=== PATIENT | male | born 1950 | race Asian ===

== ENCOUNTER 2016-10-23 05:16 | Inpatient (IN) | payer OTHER ==
[2016-10-23] VITALS (18 sets, daily range): BP systolic 91–144; BP diastolic 61–73; PULSE 50–72; RESP 10–20; Ht 172.7 cm; Wt 96.7 kg
[~2016-10-23] VITALS: Ht 172.7 cm; Wt 96.7 kg
[2016-10-23] MEDS ORDERED: CEFAZOLIN 2 GM/50 ML (PMX) 50 ML IVPB ONE (06:12)
[2016-10-23] MEDS ORDERED: ALBU8.5H3 INH (06:27)
[2016-10-23] MEDS ORDERED: PANT20TA3 PO (06:27)
[2016-10-23] MEDS ORDERED: NEBI5TAB9 PO (06:27)
[2016-10-23] MEDS ORDERED: LOSA100T7 PO (06:27)
[2016-10-23] MEDS ORDERED: HYDROCORTISONE 250 MG INJ IV ONE (06:30)
--- NOTE | 2016-10-23 06:36 | HPN ---
Date/Time of Note Date/Time of Note DATE: 10/23/16 TIME: 06:36 Interval H&P Admission Note Pt. seen H&P reviewed: No system changes SUDHEER DAVIS MD Oct 23, 2016 06:36
[2016-10-23] MEDS ORDERED: THROMBIN 5000 UNIT VIAL ONE (06:43)
[2016-10-23] MEDS ORDERED: GELATIN SIZE 100 SPONGE ONE (06:43)
[2016-10-23] MEDS ORDERED: BUPIVACAINE 0.25% (MPF) 10 ML 10 ML VIAL ONE (06:43)
[2016-10-23] MEDS ORDERED: POLYMYXIN/BACITRACIN 1L IRRIG ONE (06:43)
[2016-10-23] MEDS ORDERED: ROCURONIUM 50 MG INJ ONE ×3 (06:56→07:54)
[2016-10-23] MEDS ORDERED: MIDAZOLAM 1 MG/ML 2 ML INJ ONE (06:56)
[2016-10-23] MEDS ORDERED: PROPOFOL 100 ML ONE (06:56)
[2016-10-23] MEDS ORDERED: SUCCINYLCHOLINE CHLORIDE 100 MG/5 ML SYG IV ONE (06:56)
[2016-10-23] MEDS ORDERED: FENTAnyl 50 MCG/ML VIAL ONE (06:56)
[2016-10-23] MEDS ORDERED: ACETAMINOPHEN 1000 MG/100 ML IVPB ONE (07:00)
[2016-10-23] MEDS ORDERED: LABETALOL HCL 20MG INJ ONE (07:28)
[2016-10-23] MEDS ORDERED: hydrALAzine 20 MG INJ ONE (07:28)
[2016-10-23] MEDS ORDERED: PHENYLephrine (100 MCG/ML) 5ML SYG ONE ×2 (07:37→10:27)
[2016-10-23] MEDS ORDERED: DEXAMETHASONE 4 MG/ML 1 ML INJ ONE (07:52)
[2016-10-23] MEDS ORDERED: METOCLOPRAMIDE 10 MG INJ ONE (07:52)
[2016-10-23] MEDS ORDERED: ONDANSETRON 4 MG INJ ONE (07:52)
[2016-10-23] MEDS ORDERED: CEFAZOLIN 1 GM INJ ONE (10:15)
[2016-10-23] MEDS ORDERED: NEOSTIGMINE 3 MG/3 ML SYRINGE ONE (10:54)
[2016-10-23] MEDS ORDERED: GLYCOPYRROLATE 0.4 MG INJ ONE (10:54)
[2016-10-23] MEDS ORDERED: METOCLOPRAMIDE 10 MG INJ IV PRN (11:00)
[2016-10-23] MEDS ORDERED: ONDANSETRON 4 MG INJ IV PRN ×2 (11:00→12:00)
[2016-10-23] MEDS ORDERED: MEPERIDINE 25 MG INJ IV PRN (11:00)
[2016-10-23] MEDS ORDERED: DIPHENHYDRAMINE 50 MG INJ IV PRN (11:00)
[2016-10-23] MEDS ORDERED: HYDROmorphONE (0.2 MG/ML) 10ML SYG IV PRN ×3 (11:00)
[2016-10-23] MEDS ORDERED: EPHEDrine SULFATE 50 MG/5 ML SYG IV PRN (11:00)
[2016-10-23] MEDS ORDERED: LABETALOL HCL 20MG INJ IV PRN (11:00)
[2016-10-23] MEDS ORDERED: ALBUMIN HUMAN 5% 250 ML IV PRN (11:00)
[2016-10-23] MEDS ORDERED: morphine (1 MG/ML) 10ML SYRINGE IV PRN ×2 (11:00)
[2016-10-23] MEDS ORDERED: hydrALAzine 20 MG INJ IV PRN (11:00)
--- NOTE | 2016-10-23 11:40 | OPR ---
Date/Time of Note Date/Time of Note DATE: 10/23/16 TIME: 11:37 Operative Report Preoperative Diagnosis HNP C4-5 and C5-6 Postoperative Diagnosis Same Operation Performed Anterior cervical microdiscectomy C4-5 Anterior cervical microdiscectomy C5-6 Anterior cervical interbody arthrodesis at C4-5 Anterior cervical interbody arthrodesis at C5-6 Left iliac bone graft Segmental spinal fixation from C4-C6 using Alphatec plate and screws Cosmetic wound closures 5 cm left cervical 3 cm left iliac AP and lateral localizing cervical radiograph (2 sets) Intraoperative nerve monitoring (3 hours) Surgeon: SUDHEER DAVIS MD pastoral assistant: BETZAIDA HANSEN MD Anesthesia: general Anesthesiologist: MELISSA CASE MD Estimated Blood Loss: 10 - 50 ml's Specimens Disk C4-5 and C5-6 Tubes/Drains Two medium hemovac drains in neck and left iliac Complications: None Pt Condition Post Procedure: stable Disposition: PACU Operative\Procedure Findings At surgery, a severe central and left paracentral herniation of the C4-5 disc was confirmed with marked cord compression. At C5-6, severe disc degeneration with a small herniation was confirmed. SUDHEER DAVIS MD Oct 23, 2016 11:40
[2016-10-23] MEDS ORDERED: HYDROCODONE/APAP (5/325) TAB PO PRN (11:44)
[2016-10-23] MEDS: morphine (1 MG/ML) 10ML SYRINGE IV PRN ×3 (11:54→12:33)
[2016-10-23] MEDS ORDERED: DIPHENHYDRAMINE 50 MG CAP PO PRN (12:00)
[2016-10-23] MEDS ORDERED: NACL 0.9% 3 ML SYG IV SCH (12:00)
[2016-10-23] MEDS ORDERED: DIAZEPAM 5 MG/ML SYG IM PRN (12:00)
[2016-10-23] MEDS ORDERED: DIAZEPAM 5 MG TAB PO PRN (12:00)
[2016-10-23] MEDS ORDERED: PROCHLORPERAZINE 10 MG TAB PO PRN (12:00)
[2016-10-23] MEDS ORDERED: TRIMETHOBENZAMIDE 100 MG/ML VIAL IM PRN (12:00)
[2016-10-23] MEDS ORDERED: ACETAMINOPHEN 325 MG TAB PO PRN (12:00)
[2016-10-23] MEDS ORDERED: BETHANECHOL 25 MG TAB PO PRN (12:00)
[2016-10-23] MEDS ORDERED: AL HYDROX/MG HYDROX/SIMETH 30 ML CUP PO PRN (12:00)
[2016-10-23] MEDS ORDERED: NALOXONE (0.4 MG/ML) INJ IV PRN (12:00)
[2016-10-23] MEDS ORDERED: ZOLPIDEM 5 MG TAB PO PRN (12:00)
[2016-10-23] MEDS: HYDROmorphONE 0.2 MG/ML PCA IV SCH (12:13)
[2016-10-23] MEDS: CEFAZOLIN 1 GM/50 ML (PMX) 50 ML IVPB SCH ×3 (15:06→23:51)
[2016-10-23] MEDS: DEXTROSE 5%-0.45% NACL 1,000 ML IV SCH ×2 (15:06→21:34)
[2016-10-23] MEDS: HYDROCORTISONE 100 MG INJ IV SCH (15:17)
[2016-10-23] MEDS: CEPASTAT LOZENGE MT PRN ×2 (15:17→20:43)
--- NOTE | 2016-10-23 16:14 | RADRPT ---
PROCEDURE: Intraoperative XR. CLINICAL INDICATION: Intraoperative radiograph during cervical spine surgery. TECHNIQUE: 6 spot intraoperative lateral cervical x-rays image was provided. The images were revi ewed on a high-resolution PACS workstation. COMPARISON: None available FINDINGS: Spot intraoperative lateral cervical view were provided during cervical spine surgery. The images d emonstrate additional metallic probe at the level of C3-4 and C4-5. Subsequent images demonstrate p lacement of anterior vertebral body screws in the C4, C5 and C6 vertebral bodies with associated ant erior spinal fusion plate. IMPRESSION: 1. Spot intraoperative lateral cervical view during cervical spine fusion were provided. 2. Please see operative report of the same day for further information. RPTAT: HGAS .Good Fitzpatrick MD, MD Date Time Electronically viewed and signed by .Good Fiztpatrick MD, on 10/23/2016 16:14 .S/
[2016-10-23] MEDS ORDERED: LEVALBUTEROL (NEB) 0.31 MG/3 ML AMP HHN PRN (18:30)
[2016-10-23] MEDS ORDERED: IPRATROPIUM (NEB) 0.5 MG/2.5 ML AMP HHN PRN (18:30)
--- NOTE | 2016-10-23 18:54 | CONS ---
Date/Time of Note Date/Time of Note DATE: 10/23/16 TIME: 18:31 Assessment/Plan Assessment/Plan Problems: (1) Herniated cervical disc Status: Chronic Comment: with compression s/p anterior cervical discectomy and fusion. Clinically stable. (2) Chronic bronchitis with COPD (chronic obstructive pulmonary disease) Status: Chronic Comment: Breathing treatments( on demand) as needed (3) GERD (gastroesophageal reflux disease) Status: Chronic Comment: Continue Protonix daily (4) Hypertension Status: Chronic Comment: Will continue Losartan and Bystolic (5) Aftercare following surgery Status: Acute Comment: Pain management and physical therapy per Dr. Mccormick and team. (6) Impaired glucose tolerance Status: Chronic Comment: Will add accu-check treatment as needed Additional Assessment/Plan POD#0 clinically stable. Consultation Date/Type/Reason Admit Date/Time Oct 23, 2016 at 05:16 Date of Consultation: Oct 23, 2016 Type of Consultation: Internal Medicine Reason for Consultation Medical management of non surgical issues Referring Provider: SUDHEER MCCORMICK Hx of Present Illness 65 year old man history of fall from a seay with resultant herniated disc with cord compression of C4-5 and C5-6. He experienced symptoms of neck pain, stiffness and bilateral upper extremity hyperesthesias. He has undergone conservative management and failed remaining symptomatic. He is currently s/p anterior cervical discectomy with fusion. Constitutional: no complaints Eyes: other (floaters) ENT: no complaints Respiratory: other (chest congestion with occassional phlegm) Cardiovascular: no complaints Gastrointestinal: other (reflux) Genitourinary: no complaints Musculoskeletal: other (right foot pain) Skin: no complaints Neurologic: other (bilateral hyperstesias improved after surgery) Endocrine: no complaints Lymphatic: no complaints Psychological: no complaints Immunologic: no complaints Past Medical History Medical History: GERD, hypertension, other (impaired glucose tolerance.) Past Surgical History Past Surgical Hx: other (Bilateral carpal tunnel release, skin grafts, bilateral knee arthroscopy) Family History Significant Family History: heart disease, hypertension, other (thyroid cancer) Social History Alcohol Use: none Smoking Status: Never smoker Drug Use: none Other 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 Exam/Review of Systems Vital Signs Vitals Vital Signs Date Time Temp Pulse Resp B/P Pulse Ox O2 Delivery O2 Flow Rate FiO2 10/23/16 18:02 20 10/23/16 13:03 66 122/72 96 Room Air 10/23/16 12:18 98.2 10/23/16 11:26 8.0 Exam Sitting comfortably in bed. Constitutional: alert, oriented, well developed Psych: no complaints Head: normocephalic Eyes: EOMI, PERRL Neck: other (neck in collar) Respiratory: clear to auscultation, normal air movement Cardiovascular: regular rate and rhythm Musculoskeletal: nl extremities to inspection Extremities: normal pulses Neurological: other (grossly intact) Skin: nl turgor Medications Medications Current Medications Dextrose/Sodium Chloride (D5-1/2ns) 1,000 ml @ 100 mls/hr Q10H IV Last administered on 10/23/16 15:06; Admin Dose 100 MLS/HR; Start 10/23/16 at 11:34 Acetaminophen/ Hydrocodone Bitart (Steen (5/325)) 1 tab Q4H PRN PO PAIN LEVEL 1 -5; Start 10/23/16 at 11:44 Acetaminophen/ Hydrocodone Bitart 2 tab 2 tab Q4H PRN PO PAIN LEVEL 6-10; Start 10/23/16 at 11:44 Cefazolin Sodium (Ancef 1 Gm/50 ml (Pmx)) 50 ml @ 100 mls/hr Q6 IVPB Last administered on 10/23/16 15:06; Admin Dose 100 MLS/HR; Start 10/23/16 at 12:00; Stop 10/24/16 at 06:29 Zolpidem Tartrate (Ambien) 5 mg HS PRN PO INSOMNIA; Start 10/23/16 at 12:00 Prochlorperazine (Compazine) 10 mg Q4H PRN PO NAUSEA AND/OR VOMITING; Start 10/23/16 at 12:00 Trimethobenzamide HCl (Tigan) 200 mg Q4H PRN IM NAUSEA AND/OR VOMITING; Start 10/23/16 at 12:00 Ondansetron HCl (Zofran Inj) 4 mg Q6H PRN IV NAUSEA AND/OR VOMITING; Start 10/23 at 12:00 Al Hydrox/Mg Hydrox/Simethicone (Mag-Al Plus) 15 ml Q4H PRN PO CONSTIPATION; Start 10/23/16 at 12:00 Docusate Sodium (Colace) 100 mg BID PO ; Start 10/24/16 at 09:00 Acetaminophen (Tylenol Tab) 650 mg Q4H PRN PO TEMP GREATER THAN 101F OR MARIA; Start 10/23/16 at 12:00 Ascorbic Acid (Vitamin C) 1,000 mg BID PO ; Start 10/24/16 at 09:00 Ferrous Sulfate (Ferrous Sulfate (Ec)) 325 mg TID PO ; Start 10/24/16 at 09:00 Ranitidine HCl (Zantac) 150 mg BID PO ; Start 10/23/16 at 21:00 Diazepam (Valium) 5 mg Q4H PRN PO MUSCLE SPASMS; Start 10/23/16 at 12:00 Diazepam (Valium) 5 mg Q4H PRN IM MUSCLE SPASMS; Start 10/23/16 at 12:00 Phenol (Cepastat Lozenge) 1 lozenge PRN PRN MT SORE THROAT Last administered on 10/23/16 15:17; Admin Dose 1 LOZENGE; Start 10/23/16 at 12:00 Bethanechol Chloride (Urecholine) 25 mg PRN PRN PO UNABLE TO VOID; Start at 12:00 Diphenhydramine HCl (Benadryl) 50 mg Q6H PRN PO PRURITUS; Start 10/23/16 at 12: 00 Hydromorphone HCl (Dilaudid QUALITY INTERN) Q4PCA IV Last administered on 10/23/16 12:13 ; Admin Dose 6 MG; Start 10/23/16 at 11:41 Naloxone HCl (Narcan) 0.2 mg Q2M PRN IV RR 8 BREATHS/MIN OR LESS; Start at 12:00 Hydrocortisone (Solu-Cortef) 100 mg AM IV Last administered on 10/23/16 15:17; Admin Dose 100 MG; Start 10/23/16 at 13:00; Stop 10/24/16 at 09:01 Losartan Potassium (Cozaar) 100 mg DAILY PO ; Start 10/24/16 at 09:00 Miscellaneous Medication (Bystolic) 5 mg DAILY PO ; Start 10/23/16 at 20:00 Pantoprazole Sodium (Protonix) 20 mg DAILY@06 PO ; Start 10/24/16 at 06:00 BEBETO BONILLA MD Oct 23, 2016 18:43
[2016-10-23] MEDS: ALBUTEROL 18 GM INHALER INH SCH (20:36)
[2016-10-23] MEDS: NEBIVOLOL 5 MG TAB PO SCH (20:37)
[2016-10-23] MEDS: RANITIDINE 150 MG TAB PO SCH (20:37)
[2016-10-23] MEDS: ACCU-CHEK XX SCH (20:38)
[2016-10-24] MEDS: ALBUTEROL 18 GM INHALER INH SCH ×4 (00:39→13:00)
[2016-10-24 01:06] VITALS: BP 120/65; RESP 18
[2016-10-24] MEDS: DEXTROSE 5%-0.45% NACL 1,000 ML IV SCH (03:18)
[2016-10-24] MEDS: CEPASTAT LOZENGE MT PRN ×2 (03:23→05:44)
[2016-10-24] MEDS: HYDROmorphONE 0.2 MG/ML PCA IV SCH (05:43)
[2016-10-24] MEDS: CEFAZOLIN 1 GM/50 ML (PMX) 50 ML IVPB SCH (05:46)
[2016-10-24 05:56] LABS: HEMATOCRIT 41.3 % (42.0-52.0); HEMOGLOBIN 14.6 g/dl (14.0-18.0)
[2016-10-24] MEDS ORDERED: PANTOPRAZOLE SODIUM 20 MG TABEC PO SCH (06:00)
[2016-10-24 06:15] LABS: CALCIUM 8.9 mg/dl (8.4-10.2); CREATININE 0.78 mg/dl (0.61-1.24); POTASSIUM 4.1 mmol/L (3.5-5.1)
--- NOTE | 2016-10-24 07:04 | PN ---
Date/Time of Note Date/Time of Note DATE: 10/24/16 TIME: 07:03 Assessment/Plan Lines/Catheters IV Catheter Type (from Nrs): Saline Lock Ann in Place (from Nrs): Yes Subjective 24 Hr Interval Summary The patient is postop day #1 following a 2 level anterior cervical discectomy and fusion. He is resting comfortably. His Brielle collar is in place. Neurovascular structures are intact. His morning lab work is unremarkable. A Ann catheter is in place. His Hemovac drainage is minimal, and will be removed. His Ann catheter will be removed. He will be given physical therapy 3-4 times daily until he is independent. Exam/Review of Systems Vital Signs Vitals Vital Signs Date Time Temp Pulse Resp B/P Pulse Ox O2 Delivery O2 Flow Rate FiO2 10/24/16 05:00 18 10/24/16 01:06 98.6 62 120/65 96 10/23/16 23:24 3.0 10/23/16 20:14 Nasal Cannula Intake and Output 10/23/16 10/23/16 10/24/16 15:00 23:00 07:00 Intake Total 2600 ml 700 ml 900 ml Output Total 370 ml 900 ml 1600 ml Balance 2230 ml -200 ml -700 ml Results Result Diagram: 10/24/16 0507 10/24/16 0507 SUDHEER DAVIS MD Oct 24, 2016 07:04
--- NOTE | 2016-10-24 07:32 | OPR ---
DATE OF OPERATION: 10/23/2016 PREOPERATIVE DIAGNOSES: 1. Herniated disk C4-C5 centrally with severe cord compression. 2. Herniated disk C5-C6. POSTOPERATIVE DIAGNOSES: 1. Herniated disk C4-C5 centrally with severe cord compression. 2. Herniated disk C5-C6. OPERATION PERFORMED: 1. Anterior cervical microdiskectomy at C4-C5. 2. Anterior cervical microdiskectomy at C5-C6. 3. Anterior cervical interbody arthrodesis C4-C5. 4. Anterior cervical interbody arthrodesis at C5-C6. 5. Segmental spinal fixation from C4 to C6 using Alphatec plate and screws. 6. Left iliac bone graft. 7. AP and lateral cervical radiographs (2 sets). 8. Intraoperative nerve monitoring (3 hours). SURGEON: Attila Mccormick MD RESIDENTIAL FINISH CARPENTER: LUCAS Tran ANESTHESIA: General endotracheal, by Dr. Law. ESTIMATED BLOOD LOSS: 40 mL, none replaced. DRAINS: Two medium Hemovac drains employed in the cervical wound, 2 medium Hemovac drains employed in the iliac wound. COMPLICATIONS: None. PERTINENT HISTORY AND PHYSICAL: This is a 65-year-old male with persistent neck and upper extremity complaints which have been unrelieved by conservative management following industrial injury of 06/28/1979. He has had extensive care since that time, has remained symptomatic. He has undergone a number of diagnostic studies including an MRI of the cervical spine which demonstrated a large central herniation of C4-C5 disk with cord compression and a smaller central herniation of C5-C6. Treatment options were discussed with the patient , who elected to proceed with surgery. OPERATIVE FINDINGS AT SURGERY: A large central herniation at C4-C5 and a smaller central herniation at C5-C6 were confirmed. The baseline intraoperative nerve monitoring revealed a decrease in the C5 potentials bilaterally at 50% and the C6 potentials bilaterally of 40%. These both returned to normal at the completion of surgery. OPERATIVE PROCEDURE: With the patient in supine position after satisfactory induction of general endotracheal anesthesia by . patient was positioned in supine position onto the operative table. All pressure points were carefully padded. The athrombic pumps were applied to the legs below the knees to prevent venous stasis during and after procedure. An indwelling Ann catheter was also placed preoperatively to facilitate bladder drainage during and after the procedure. The anterior cervical spine and left iliac crest were prepped and draped in usual sterile fashion. A 5 cm transverse incision was carried out on the anterior aspect of cervical spine approximately 2 fingerbreadths above the clavicle in line with the clavicle through skin and subcutaneous tissue to the platysma fascia. Superficial retractors were placed and hemostasis secured with electrocautery. Throughout the procedure, copious amounts of antibacterial irrigating solution were used to periodically irrigate the wound. The platysma fascia was divided transversely, and the interval between the sternocleidomastoid and strap muscles was entered with blunt dissection. The Cloward hand-held retractor was used to retract the esophagus and the trachea to the right. The peanut elevator was used to clear the anterior longitudinal ligament of overlying soft tissue. A 20-gauge spinal needle was carefully angulated to prevent overpenetration was then placed into what was felt to be the C4-C5 and C5-C6 disks. A lateral roentgenogram was taken which confirmed anatomic localization. The longissimus coli muscles were elevated bilaterally with a hot knife, Cloward self-retaining retractor was then placed into the wound for visualization and retraction. The operating microscope was then moved into place. The 15 blade knife was used to cut a rectangular window in the annulus and anterior longitudinal ligament at C4-C5 and C5-C6. Multiple degenerative disk fragments were harvested with pituitary rongeurs, back to the level of posterior longitudinal ligament. The Cloward interbody distractors were used to facilitate disk space distraction. The 0, 2-0, 3-0, and 4-0 straight and angulated Chandni curettes were then used to remove the cartilaginous endplates. A high speed Wilver cecil bur was also used to remove remnants of cartilage at C4-C5 and C5-C6 disk spaces. The 2 mm Kerrison punch was then used to take down the posterior longitudinal ligament at both levels to decompress the spinal cord and the exiting nerve roots at each level. Some large disk fragments were removed at the C4-C5 level from behind the disk space. Attention was then turned to the left iliac crest where a 3 cm incision was carried out 1 inch proximal and 1 inch lateral to the anterior superior iliac spine through skin and subcutaneous tissue to the fascia. The skin was then retracted to the level of the iliac crest and the hot knife used to make a fascial incision directly over the iliac crest. A subperiosteal dissection carried out was then on the inner and outer table of the left ilium and a tricortical iliac bone graft measuring approximately 3/4 inch in length and 1 cm deep was then harvested using a reciprocating saw and a 3/4 inch curved osteotome and mallet. The donor bone edges were waxed for hemostasis after thorough irrigation with antibacterial irrigating solution. The wound was closed over 2 medium Hemovac drains, one below the fascia and one above the fascia using #1 Vicryl sutures on the fascia, 2-0 Vicryl sutures in subQ tissue , and a 4-0 Vicryl subcuticular cosmetic closing suture on the skin. The bone plug was then divided into 2 and trimmed to approximately 6 mm in height and 8 mm in depth. It was impacted in place at C4-C5 and C5-C6 under direct vision with the microscope. The 40 mm Alphatec plate was then selected and temporarily transfixed to the anterior aspect of cervical spine with darts. AP and lateral x-rays were taken, which confirmed appropriate positioning of the bone plugs and the hardware. The 14 mm self-tapping and self-drilling screws were then used to secure the plate to the anterior aspects of C4, C5 and C6 under direct vision. Final AP and lateral cervical radiographs were taken, which confirmed appropriate positioning of the hardware and the bone plugs. The wound was again finally irrigated with antibacterial irrigating solution and closed over 2 medium Hemovac drains, one below the fascia and one above the fascia; using 0 Vicryl Stratafix sutures on the interval between the sternocleidomastoid and strap muscles, 0 Vicryl sutures on the platysma fascia, 3-0 Vicryl sutures on subcutaneous tissue, and a 4-0 Vicryl subcuticular cosmetic closing suture on the skin. Dermabond and sterile dressings were applied. The patient's neck was then immobilized in an [place] collar and he was extubated by Dr. Law. and transported to the recovery room in satisfactory condition. At the conclusion of the procedure, sponge, instrument, and needle counts were all correct. NEED FOR ENTRY LEVEL PROJECT COORDINATOR: During this spinal surgical procedure, my corporate law assistant was used to retract and protect the spinal nerves and dural sac. My corporate law assistant also employed the suction catheters to evacuate blood from the surgical field to improve visualization of the neural structures. The corporate law assistant was medically necessary to facilitate the completion of the surgery in a safe and expeditious manner. State of [place] regulations, as well as hospital bylaws, preclude the use of non-licensed health care personnel such as operating room technicians, to perform these functions. Throughout the procedure, neuromonitoring was carried out by [email or web address] including EMG, SSEP and MEP monitoring of the C4, C5 , C6, C7 nerve roots and spinal cord potentials along with laryngeal nerve potentials. These were interpreted by the neurologist employed by [employer]. Dictated By: ATTILA MCCORMICK MD TM/NTS Conf#: [id number] DID#: [id number] CC: LOUISA MARCELINO MD;*EndCC* MTDD
[2016-10-24 07:52] VITALS: BP 120/64; RESP 20
[2016-10-24] MEDS ORDERED: BETHANECHOL 25 MG TAB PO PRN (08:00)
[2016-10-24] MEDS ORDERED: ASCORBIC ACID 500 MG TAB PO SCH (09:00)
[2016-10-24] MEDS ORDERED: LOSARTAN 50 MG TAB PO SCH (09:00)
[2016-10-24] MEDS ORDERED: DOCUSATE SODIUM 100 MG CAP PO SCH (09:00)
[2016-10-24] MEDS: HYDROCORTISONE 100 MG INJ IV SCH (09:13)
[2016-10-24] MEDS: NEBIVOLOL 5 MG TAB PO SCH (09:14)
[2016-10-24] MEDS: FERROUS SULFATE (EC) 325 MG TAB PO SCH ×2 (09:14→13:00)
[2016-10-24] MEDS: RANITIDINE 150 MG TAB PO SCH (09:14)
[2016-10-24] MEDS: ACCU-CHEK XX SCH ×2 (09:15→11:10)
[2016-10-24 09:23] LABS: ADD UMIC YES; URINE BILIRUBIN (Dip) NEGATIVE (NEGATIVE); URINE BLOOD (Dip) 3+ (NEGATIVE); URINE COLOR LT. YELLOW (YELLOW); URINE GLUCOSE (Dip) NEGATIVE (NEGATIVE); URINE KETONES (Dip) NEGATIVE (NEGATIVE); URINE LEUKOCYTE ESTERASE (Dip) NEGATIVE (NEGATIVE); URINE NITRITE (Dip) NEGATIVE (NEGATIVE); URINE TOTAL PROTEIN (Dip) NEGATIVE (NEGATIVE); URINE UROBILINOGEN (Dip) 0.2 E.U./dL (0.1-1.0)
[2016-10-24 10:01] LABS: BACTERIA,URINE RARE; URINE RBCS >200 /HPF (0)
[2016-10-24] MEDS: HYDROCODONE/APAP (5/325) TAB PO PRN ×2 (12:53→17:24)
== END 2016-10-24 17:40 | disposition home or self-care (01) | DRG 473 ==
LOC: REC 05:16 → MS1 12:56
PROVIDERS: ADMIT Orthopaedic Surgery; ATTEND Orthopaedic Surgery
PROC: 0RB30ZZ Excision of Cervical Vertebral Disc, Open Approach (ICD-10-PCS; 2016-10-23)
PROC: 0QB30ZZ Excision of Left Pelvic Bone, Open Approach (ICD-10-PCS; 2016-10-23)
PROC: 4A11X4G Monitoring of Peripheral Nervous Electrical Activity, Intraoperative, External Approach (ICD-10-PCS; 2016-10-23)
PROC: 0RG1070 Fusion of Cervical Vertebral Joint with Autologous Tissue Substitute, Anterior Approach, Anterior Column, Open Approach (ICD-10-PCS; principal; 2016-10-23 07:00)
DX: M50.021 Cervical disc disorder at C4-C5 level with myelopathy (principal); I10 Essential (primary) hypertension; K21.9 Gastro-esophageal reflux disease without esophagitis; R73.02 Impaired glucose tolerance (oral); J44.9 Chronic obstructive pulmonary disease, unspecified
CPT/HCPCS: 72050; 80048; 81001; 82962; 85014; 85018; 86850; 86900; 86901; 86920; 87086; 97116; 97162; 97530; J0131; J0360; J0690; J1100; J1170; J1720; J2175; J2250; J2270; J2370; J2405; J2710; J2765; J3010; J7042; J7999